=== PATIENT | male | born 1940 | race Caucasian/White ===

== ENCOUNTER 2024-07-05 10:30 | Emergency (ER) | payer MEDICARE ==
[~2024-07-05] VITALS: Ht 180.3 cm; Wt 92.1 kg
[~2024-07-05 10:30] MED LIST: ASPI81CH PO; ATOR20 PO; CLOP75 PO; LISI5 PO; METO50 PO; OMEP20ER PO; [UNRECOGNIZED DRUG - CODE] PO
[2024-07-05 11:19] LABS: BASOPHILS ABSOLUTE AUTO 0.02 K/mm3 (0.00-0.23); BASOPHILS PERCENT AUTO 0 % (0-2); EOSINOPHILS ABSOLUTE AUTO 0.07 K/mm3 (0.00-0.68); EOSINOPHILS PERCENT AUTO 1 % (0-6); Hemoglobin 14.1 g/dL (13.5-17.5); IMMATURE GRAN ABSOLUTE AUTO 0.02 K/mm3 (0.00-0.10); IMMATURE GRAN PERCENT AUTO 0 % (0-1); LYMPHOCYTES ABSOLUTE AUTO 1.32 K/mm3 (0.84-5.20); LYMPHOCYTES PERCENT AUTO 20 % (21-46); MONOCYTES ABSOLUTE AUTO 0.39 K/mm3 (0.16-1.47); MONOCYTES PERCENT AUTO 6 % (4-13); Mean Corpuscular HGB 31.5 pg (26.0-34.0); Mean Corpuscular HGB Conc 33.6 g/dL (31.5-36.5); Mean Corpuscular Volume 94 fL (80-100); Mean Platelet Volume 9.5 fL (9.1-12.4); NEUTROPHILS ABSOLUTE AUTO 4.91 K/mm3 (1.96-9.15); NEUTROPHILS PERCENT AUTO 73 % (41-73); Platelet Count 211 K/mm3 (150-400); RDW Coefficient Variation 12.9 % (11.7-14.2); Red Blood Cell Count 4.48 M/mm3 (4.30-5.90); White Blood Cell Count 6.73 K/mm3 (4.00-11.30)
[2024-07-05 11:44] LABS: Albumin/Globulin Ratio 0.8 (0.8-1.8); Bilirubin, Total 0.8 mg/dL (0.1-1.0); Bun/Creatinine Ratio 11.2 (12.0-20.0); Calcium, Blood 8.3 mg/dL (8.5-10.1); Creatinine, Blood 0.9 mg/dL (0.60-1.20); Globulin, Blood 3.6 g/dL (2.2-4.0); Potassium, Blood 4.2 mmol/L (3.5-5.5); Total Protein, Blood 6.6 g/dL (6.4-8.2)
[2024-07-05] MEDS ORDERED: Aspirin 81 MG TabEC PO ONE (12:45)
[2024-07-05] MEDS ORDERED: Aspirin EC81 MG PO (13:22)
[2024-07-05] MEDS ORDERED: ATOR20 PO (13:22)
== END 2024-07-05 13:47 | disposition home or self-care (01) ==
LOC: ER 10:30
PROVIDERS: Emergency Medicine
DX: R55 Syncope and collapse (principal); I25.2 Old myocardial infarction; I10 Essential (primary) hypertension; E78.00 Pure hypercholesterolemia, unspecified
CPT/HCPCS: 70450; 80053; 83721; 84484; 85025; 93005; 93010; 93880; 99284-25; A9270

== ENCOUNTER 2025-01-15 20:50 | Inpatient (IN) | payer MEDICARE ==
[~2025-01-15] VITALS: Ht 180.3 cm; Wt 95.2 kg
[~2025-01-15 20:50] MED LIST changes: +Aspirin EC81 MG PO; +Ticagrelor 90 MG TABLET PO ONE
[2025-01-15] MEDS ORDERED: Ticagrelor 90 MG TABLET PO ONE (21:00)
[2025-01-15] MEDS ORDERED: Heparin Sodium 5000 Units/ML 1ML MDV IV ONE (21:00)
[2025-01-15 21:04] LABS: BASOPHILS ABSOLUTE AUTO 0.03 K/mm3 (0.00-0.23); BASOPHILS PERCENT AUTO 0 % (0-2); EOSINOPHILS PERCENT AUTO 1 % (0-6); Hematocrit 39.3 % (37.0-53.0); Hemoglobin 13.1 g/dL (13.5-17.5); IMMATURE GRAN ABSOLUTE AUTO 0.02 K/mm3 (0.00-0.10); IMMATURE GRAN PERCENT AUTO 0 % (0-1); LYMPHOCYTES PERCENT AUTO 20 % (21-46); MONOCYTES ABSOLUTE AUTO 0.55 K/mm3 (0.16-1.47); MONOCYTES PERCENT AUTO 7 % (4-13); Mean Corpuscular HGB 31.4 pg (26.0-34.0); Mean Corpuscular HGB Conc 33.3 g/dL (31.5-36.5); Mean Corpuscular Volume 94 fL (80-100); Mean Platelet Volume 10.1 fL (9.1-12.4); NEUTROPHILS ABSOLUTE AUTO 5.98 K/mm3 (1.96-9.15); NEUTROPHILS PERCENT AUTO 71 % (41-73); Platelet Count 165 K/mm3 (150-400); RDW Coefficient Variation 13.1 % (11.7-14.2); RDW Standard Deviation 45.1 fL (35.1-46.3); Red Blood Cell Count 4.17 M/mm3 (4.30-5.90); White Blood Cell Count 8.38 K/mm3 (4.00-11.30)
[2025-01-15] MEDS ORDERED: NS 250 ML IV ONE (21:14)
[2025-01-15] MEDS ORDERED: Heparin Sodium 1000 Units/ML 10ML MDV ONE ×2 (21:14→22:01)
[2025-01-15] MEDS ORDERED: NS 2,000 ML IV ONE (21:14)
[2025-01-15] MEDS ORDERED: Nitroglycerin 2 MG/20 ML BTL ONE (21:15)
[2025-01-15] MEDS ORDERED: NiCARdipine HCL 1,000 MCG/5 ML SYR ONE (21:15)
[2025-01-15] MEDS ORDERED: FentaNYL Citrate 50 MCG/ML 2 ML Injection ONE (21:16)
[2025-01-15] MEDS ORDERED: Midazolam HCl 1MG / ML 2ML Vial ONE (21:16)
[2025-01-15 21:22] LABS: Bun/Creatinine Ratio 15.4 (12.0-20.0); Calcium, Blood 8.5 mg/dL (8.5-10.1); Creatinine, Blood 1.04 mg/dL (0.60-1.20); Magnesium, Blood 2.2 mg/dL (1.6-2.4); Potassium, Blood 4.4 mmol/L (3.5-5.5)
[2025-01-15] MEDS ORDERED: NS 500 ML IV ONE (22:01)
[2025-01-15] MEDS ORDERED: Ondansetron HCl 2 MG / ML 2ML Vial IV PRN (22:30)
[2025-01-15 23:00] VITALS: BP 117/69
[2025-01-15] MEDS ORDERED: NS 1,000 ML IV SCH (23:00)
[2025-01-15] MEDS ORDERED: Isosorbide Mononitrate 30 MG TABCR PO SCH (23:00)
[2025-01-15] MEDS ORDERED: Atorvastatin 40 MG Tab PO SCH (23:00)
[2025-01-15] MEDS ORDERED: Acetaminophen 325 MG TABLET PO PRN (23:00)
--- NOTE | 2025-01-15 23:14 | NUR ---
VERBAL BEDSIDE REPORT GIVEN TO RITA VILLA. RIGHT RADIAL SITE TR BAND REVIEWED. PATIENT COMPLAINING OF 5/10 MD RONNIE AWARE.
[2025-01-15 23:15] VITALS: BP 118/78
[2025-01-15 23:30] VITALS: BP 114/63
[2025-01-15] MEDS ORDERED: Losartan Potassium 25 MG Tab PO SCH (23:30)
[2025-01-15 23:45] VITALS: BP 108/66
[2025-01-15] MEDS ORDERED: Ondansetron 4 MG TAB PO PRN (23:55)
[2025-01-16] VITALS (38 sets, daily range): BP systolic 89–111; BP diastolic 43–80
[2025-01-16 03:41] LABS: BASOPHILS ABSOLUTE AUTO 0.01 K/mm3 (0.00-0.23); BASOPHILS PERCENT AUTO 0 % (0-2); EOSINOPHILS ABSOLUTE AUTO 0.01 K/mm3 (0.00-0.68); EOSINOPHILS PERCENT AUTO 0 % (0-6); Hemoglobin 11.7 g/dL (13.5-17.5); IMMATURE GRAN ABSOLUTE AUTO 0.04 K/mm3 (0.00-0.10); IMMATURE GRAN PERCENT AUTO 1 % (0-1); LYMPHOCYTES ABSOLUTE AUTO 0.95 K/mm3 (0.84-5.20); LYMPHOCYTES PERCENT AUTO 11 % (21-46); MONOCYTES ABSOLUTE AUTO 0.47 K/mm3 (0.16-1.47); MONOCYTES PERCENT AUTO 6 % (4-13); Mean Corpuscular HGB 31.7 pg (26.0-34.0); Mean Corpuscular HGB Conc 33.4 g/dL (31.5-36.5); Mean Corpuscular Volume 95 fL (80-100); Mean Platelet Volume 10.4 fL (9.1-12.4); NEUTROPHILS PERCENT AUTO 83 % (41-73); Platelet Count 150 K/mm3 (150-400); RDW Standard Deviation 45.1 fL (35.1-46.3); Red Blood Cell Count 3.69 M/mm3 (4.30-5.90); White Blood Cell Count 8.58 K/mm3 (4.00-11.30)
[2025-01-16 04:04] LABS: Alanine Aminotransfer (ALT/SGP 50 U/L (12-78); Albumin, Blood 3.1 g/dL (3.4-5.0); Albumin/Globulin Ratio 1.1 (0.8-1.8); Alk Phos 78 U/L (50-136); Anion Gap 10 mmol/L (3-11); Aspartate Aminotrans (AST/SGOT 205 U/L (12-37); Bilirubin, Total 0.9 mg/dL (0.1-1.0); Blood Urea Nitrogen 15 mg/dL (8-24); Bun/Creatinine Ratio 14.4 (12.0-20.0); CHOL/HDL RATIO 2.5; CO2, Blood 23 mmol/L (21-32); Calcium, Blood 8.1 mg/dL (8.5-10.1); Chloride, Blood 112 mmol/L (98-108); Cholesterol 113 mg/dL (50-200); Creatinine, Blood 1.04 mg/dL (0.60-1.20); Globulin, Blood 2.7 g/dL (2.2-4.0); Glomerular Filtration Rate 71 (60-); Glucose, Blood 124 mg/dL (70-99); HDL Cholesterol 46 mg/dL (>39); Low Density Lipoprotein Chol 46 mg/dL (0-110); Potassium, Blood 4.4 mmol/L (3.5-5.5); Sodium, Blood 141 mmol/L (136-145); Total Protein, Blood 5.8 g/dL (6.4-8.2); Triglycerides 104 mg/dL (30-160); Very Low Density Lipoprot Chol 20 mg/dL (6-32)
--- NOTE | 2025-01-16 05:54 | NUR ---
SHIFT SUMMARY: PT ARRIVED FROM THE FOOD AND NUTRITION SERVICES ASSISTANT AROUND MIDNIGHT. HE WAS VERY DROWSY AND NOT ENTIRELY ORIENTED APPROPRIATELY FOR SEVERAL HOURS. PT HAD 5/10 CHEST PAIN, THIS SEEMED TO BE CONSISTENT THROUGH CATH PROCEDURE AND DR BYRD WAS OKAY WITH THAT LEVEL BUT WANTED TO BE NOTIFIED IF IT INCREASED. CATH INSERTION SITE AT RIGHT WRIST IS BRUISED, BUT SOFT AND NONTENDER. BREATHING IS UNLABORED. CHEST PAIN HAS NOT INCREASED. REMAINS IN A SINUS VALERIA, ADVISED THAT THIS STARTED IN THE FOOD AND NUTRITION SERVICES ASSISTANT. BLOOD PRESSURES ARE SOFT BUT WNL.
[2025-01-16] MEDS ORDERED: Ticagrelor 90 MG TABLET PO SCH (09:00)
[2025-01-16] MEDS ORDERED: Losartan Potassium 25 MG Tab PO SCH ×2 (09:00)
[2025-01-16] MEDS ORDERED: Aspirin 81 MG TabEC PO SCH (09:00)
--- NOTE | 2025-01-16 12:00 | NUR ---
PT RESTING IN BED. A/O TO PERSON, PLACE, AND TIME. STATES ACHING CP 10/20, DR. BYRD AWARE. DENIES N/V OR SOB. R RADIAL ACCESS SITE WITH CLEAR OCCLUSIVE DRESSING IN PLACE, NO SIGN OF HEMATOMA. PT TRANSFERED TO PCU VIA W/C. STANDS AND PIVOTS TO CHAIR WITHOUT ISSUE. NO SIGN OF DISTRESS.
[2025-01-16] MEDS ORDERED: METO25ER PO (13:56)
[2025-01-16] MEDS ORDERED: EZET10 PO (13:57)
[2025-01-16] MEDS ORDERED: OLME20 PO (13:58)
--- NOTE | 2025-01-16 18:00 | NUR ---
SHIFT SUMMARY PATIENT A0X4 ABLE TO MAKE NEEDS KNOWN. HE DENIES SOB AND HIS VITALS ARE STABLE WITH BP SOFT WITH MAP GREATER THAN 65. HE DOES SAY HE STILL HAS SOME MILD CHEST PRESSURE WHICH CARDIOLOGY IS AWARE OF. HE IS TOLERATING IS MEALS AND IS VOIDING WITHOUT ISSUE.
--- NOTE | 2025-01-16 23:20 | NUR ---
ASSUMPTION OF CARE PT A&O X4, CALM, COOPERATIVE TO CARE. HR IN THE 50'S, SINUS VALERIA. HE REPORTS CHEST DISCOMFORT OF A /10. PER REPORT CARDIOLOGY IS AWARE OF DISCOMFORT. PT REPORTS CHRONIC NUMB/TINGLING IN BILAT FEET. SBP SOFT IN THE 100'S, MAP >65. O2 >92% ON RA, HE DENIES ANY SOB. PT S/P ANGIOGRAM ON 01/15 WITH RIGHT RADIAL SITE. TEGADERM IN PLACE. SMALL AMOUNT OF BLOOD NOTED ON TEGADERM, VIEWED WITH DAY RN, UNCHANGED. NO HEMATOMA OR BRUISING PRESENT. PT TO HAVE REPEAT TROPONIN IN THE AM. PT RESTING IN BED AT THIS TIME. CALL LIGHT IN REACH.
[2025-01-17 04:06] VITALS: BP 103/54
[2025-01-17 04:45] LABS: Bun/Creatinine Ratio 17.2 (12.0-20.0); Calcium, Blood 7.8 mg/dL (8.5-10.1); Creatinine, Blood 0.99 mg/dL (0.60-1.20)
--- NOTE | 2025-01-17 05:26 | NUR ---
SHIFT SUMMARY PT A&O X4, CALM, COOPERATIVE TO CARE. HR IN THE 50'S-60'S, SR. PT DID HAVE SOME CHEST DISCOMFORT AT START OF SHIFT BUT HE STATES "IT WAS INDIGESTION" AND IT HAS SINCE RESOLVED. HE DENIES ANY PAIN OR DISCOMFORT AT THSI TIME. SBP SOFT IN THE 100'S, MAP >65. O2 >92% ON RA, HE DENIES ANY SOB. PY WITH RIGHT RADIAL SITE, S/P ANGIO WITH STENT PLACEMENT ON 01/15. TEGADERM IN PLACE, NO BLEEDING, BRUISING OR HEMATOMA. PT HAD CRITICAL TROPININ THIS AM OF AND A CALCIUM OF 7.8, NOTIFIED, NO NEW ORDERS AT THIS TIME. PT RESTING IN BED AT THIS. CALL LIGHT IN REACH. WILL MONITOR PT AND REPORT TO ONCOMING RN.
[2025-01-17 08:20] VITALS: BP 92/56
[2025-01-17] MEDS ORDERED: Ezetimibe 10 MG Tab PO SCH (09:00)
[2025-01-17] MEDS ORDERED: Metoprolol Succinate 25 MG TABCR PO SCH (09:00)
[2025-01-17] MEDS ORDERED: Isosorbide Mono30 MG PO (10:40)
[2025-01-17] MEDS ORDERED: LOSA25 PO (10:40)
[2025-01-17] MEDS ORDERED: ATOR80 PO (10:40)
[2025-01-17] MEDS ORDERED: TICA90TA PO (10:41)
[2025-01-17 11:15] VITALS: BP 98/65
--- NOTE | 2025-01-17 11:37 | NUR ---
SHIFT SUMMARY PATIENT AOX4 ABLE TO MAKE NEEDS KNOWN. VITALS STABLE BP SOFT MAP GREATER THAN 65 HOSPITALIST AWARE. DENIES ANY CHEST PAIN OR SOB. DISCHARGE INSTRUCTIONS EXPLAINED TO PATIENT. HE UNDERSTANDS ALL MEDICATION AND FOLLOW UP INFORMATION. THE HOPSITALIST WAS CALLED TO GET PERAMETERS FOR HIS HOME BLO0D PRESSURE MEDICATION AND THE PATIENT WAS INFORMED TO HOLD IF SBP IS LESS THAN 100.
== END 2025-01-17 11:39 | disposition home or self-care (01) | DRG 321 ==
LOC: ER 20:50 → ICUE 21:26 → ER 21:26 → ICUE 21:26 → PCU 01-16 13:13
PROVIDERS: Emergency Medicine; Internal Medicine Cardiovascular Disease; ADMIT Internal Medicine
PROC: 027035Z Dilation of Coronary Artery, One Artery with Two Drug-eluting Intraluminal Devices, Percutaneous Approach (ICD-10-PCS; principal; 2025-01-15)
PROC: B2111ZZ Fluoroscopy of Multiple Coronary Arteries using Low Osmolar Contrast (ICD-10-PCS; 2025-01-15)
DX: T82.867A Thrombosis due to cardiac prosthetic devices, implants and grafts, initial encounter (principal); I21.19 ST elevation (STEMI) myocardial infarction involving other coronary artery of inferior wall; T82.855A Stenosis of coronary artery stent, initial encounter; Y71.2 Prosthetic and other implants, materials and accessory cardiovascular devices associated with adverse incidents; I25.10 Atherosclerotic heart disease of native coronary artery without angina pectoris; I10 Essential (primary) hypertension; I25.2 Old myocardial infarction; R00.1 Bradycardia, unspecified; E78.00 Pure hypercholesterolemia, unspecified; Z60.2 Problems related to living alone; Z79.82 Long term (current) use of aspirin; Z88.5 Allergy status to narcotic agent; Z87.891 Personal history of nicotine dependence
CPT/HCPCS: 36415; 71045; 76937; 80048; 80053; 80061; 83735; 83880; 84484; 85025; 85347; 92941; 93005; 93010; 93306; 93454; 96374; 96375; 99152; 99153; 99285-25; A9270; C1725; C1769; C1874; C1887; C1894; C9600; C9606; G0378; J1644; J2250; J2405; J3010; J7030; J7040; J7050; Q9967

== ENCOUNTER 2025-05-25 07:02 | Day surgery (SDC) | payer MEDICARE ==
[~2025-05-25] VITALS: Ht 180.3 cm; Wt 91.2 kg
[~2025-05-25 07:02] MED LIST changes: +ATOR80 PO; +EZET10 PO; +Isosorbide Mono30 MG PO; +LOSA25 PO; +METO25ER PO; +OLME20 PO; +TICA90TA PO; -Ticagrelor 90 MG TABLET PO ONE
[2025-05-25] MEDS ORDERED: Heparin Sodium 1000 Units/ML 10ML MDV ONE (07:32)
[2025-05-25] MEDS ORDERED: NS 0 ML IV ONE ×3 (07:32→07:44)
[2025-05-25] MEDS ORDERED: Nitroglycerin 2 MG/20 ML BTL ONE (07:32)
[2025-05-25] MEDS ORDERED: NiCARdipine HCL 1,000 MCG/5 ML SYR ONE (07:32)
--- NOTE | 2025-05-25 07:57 | NUR ---
Patient admitted for coronary angiogram with planned PCI. Dr. Genao in to see patient. Procedure canceled as patient has not been experiencing any negative symptoms such as chest pain. Patient will be managed medically. No changes made to medications. Patient to keep follow up appointment, appointment card given. Dr. Genao will place a cardiac rehab order. Patient discharged in stable condition at 0800.
== END 2025-05-26 00:29 | disposition home or self-care (01) ==
LOC: MHTC 07:02
DX: I25.10 Atherosclerotic heart disease of native coronary artery without angina pectoris (principal); I25.2 Old myocardial infarction; Z88.5 Allergy status to narcotic agent; Z79.899 Other long term (current) drug therapy; Z53.09 Procedure and treatment not carried out because of other contraindication
CPT/HCPCS: A9270; J1644; J7030; J7050